=== PATIENT | female | born 2005 | race Caucasian/White ===

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

== ENCOUNTER 2023-03-06 21:23 | Outpatient (CLI) | payer BC, MEDICAID, SELFPAY ==
[2023-03-06] VITALS (13 sets, daily range): BP systolic 100–106; BP diastolic 50–59; PULSE 65–85; RESP 16; O2SAT 99–100; BMI 22.8
[2023-03-06 22:13] LABS: Bilirubin Urine Neg (Negative); Blood Urine Neg (Negative); Glucose Urine UA Norm (Normal); Ketones Urine Negative (Negative); Leukocyte Esterase Urine 1+ (Negative); Nitrate Urine Negative (Negative); Protein Urine Neg (Negative); Urine Appearance SL Hazy (CLEAR); Urine Color Yellow (Yellow); Urobilinogen Urine 1 mg/dL (Negative); pH Urine 6 (5-7)
[2023-03-06 22:14] LABS: Bacteria Urine 2+ /hpf; RBC Urine 0-4 /hpf (0-2); WBC Urine 0-4 /hpf (0-5)
[2023-03-06 22:15] LABS: Add Urine Culture? No
[2023-03-06] MEDS: terbutaline 1 mg/mL INJ 0.25 MG SUBCUT (23:17)
== END 2023-03-07 00:06 | disposition home or self-care (01) ==
LOC: OPOB 21:24 → OBGYN 21:25
PROVIDERS: PCP Family Medicine; Visit Provider Family Medicine
DX: O26.899 Other specified pregnancy related conditions, unspecified trimester (principal); Z3A.00 Weeks of gestation of pregnancy not specified; R10.9 Unspecified abdominal pain; R10.2 Pelvic and perineal pain
CPT/HCPCS: 59025; 81001; 96372; 99211; J3105

== ENCOUNTER 2023-03-09 16:19 | Outpatient (CLI) | payer BC, MEDICAID, SELFPAY ==
[2023-03-09 16:27] VITALS: TEMP 36.4
[2023-03-09 16:29] VITALS: BP 109/65; PULSE 96
[2023-03-09 16:38] VITALS: RESP 16
[2023-03-09 16:39] VITALS: BMI 22.8
[2023-03-09 16:47] VITALS: BP 109/63; PULSE 97
[2023-03-09 16:56] VITALS: BP 106/62; PULSE 97
== END 2023-03-09 16:58 | disposition home or self-care (01) ==
LOC: OPOB 16:19 → OBGYN 16:20
PROVIDERS: PCP Family Medicine; Visit Provider Family Medicine
DX: Z36.9 Encounter for antenatal screening, unspecified (principal)
CPT/HCPCS: 59025

== ENCOUNTER 2023-03-14 12:45 | Outpatient (CLI) | payer BC, MEDICAID, SELFPAY ==
[2023-03-14] VITALS (8 sets, daily range): BP systolic 110–114; BP diastolic 60–65; PULSE 87–239; RESP 16; TEMP 37.2; O2SAT 97–99; BMI 23.0
== END 2023-03-14 13:18 | disposition home or self-care (01) ==
LOC: OPOB 12:47 → OBGYN 12:50
PROVIDERS: PCP Family Medicine; Visit Provider Family Medicine
DX: Z36.9 Encounter for antenatal screening, unspecified (principal)
CPT/HCPCS: 59025

== ENCOUNTER 2023-03-18 14:57 | Outpatient (CLI) | payer BC, MEDICAID, SELFPAY ==
[2023-03-18 15:00] VITALS: BMI 23.1
[2023-03-18 15:05] VITALS: BP 113/59; PULSE 109
[2023-03-18 15:21] VITALS: BP 108/60; PULSE 96
[2023-03-18 15:28] VITALS: BP 108/60; PULSE 96; RESP 16
== END 2023-03-18 15:35 | disposition home or self-care (01) ==
LOC: OPOB 15:01 → OBGYN 15:01
PROVIDERS: PCP Family Medicine; Visit Provider Family Medicine
DX: O47.9 False labor, unspecified (principal); Z3A.00 Weeks of gestation of pregnancy not specified
CPT/HCPCS: 59025; 99211

== ENCOUNTER 2023-03-20 11:35 | Outpatient (CLI) | payer BC, MEDICAID, SELFPAY ==
[2023-03-20 11:35] VITALS: RESP 18; BMI 23.1
[2023-03-20 11:56] VITALS: BP 100/61; PULSE 96
[2023-03-20 12:17] VITALS: BP 98/63; PULSE 86
[2023-03-20 12:19] VITALS: BP 98/63; PULSE 86
== END 2023-03-20 12:19 | disposition home or self-care (01) ==
LOC: OPOB 11:38 → OBGYN 11:41
PROVIDERS: PCP Family Medicine; Visit Provider Family Medicine
DX: O47.9 False labor, unspecified (principal); Z3A.00 Weeks of gestation of pregnancy not specified
CPT/HCPCS: 59025; 99211

== ENCOUNTER 2023-04-04 23:00 | Inpatient (IN) | payer BC, MEDICAID, SELFPAY ==
[2023-04-04 23:08] VITALS: BP 108/62; PULSE 90; TEMP 36.5
[2023-04-04 23:23] VITALS: BP 102/58; PULSE 90
[2023-04-04 23:26] VITALS: BMI 23.3
[2023-04-04 23:37] VITALS: BP 102/56; PULSE 95
[2023-04-04 23:53] VITALS: BP 113/69; PULSE 93
[2023-04-05] VITALS (80 sets, daily range): BP systolic 73–124; BP diastolic 47–79; PULSE 53–101; RESP 15–16; TEMP 36–37; O2SAT 92–100
[2023-04-05 00:14] LABS: Basophils # 0.1 10^3/uL (0.0-0.1); Basophils % 0.5 %; Eosinophils # 0.1 10^3/uL (0.0-0.8); Hematocrit 29.6 % (36-47); Lymphocytes # 2.3 10^3/uL (1.5-6.5); Lymphocytes % 21.9 %; Mean Corpuscular HGB Conc 31.8 g/dL (30-55); Mean Corpuscular Hemoglobin 25.7 pg (27-33); Mean Corpuscular Volume 80.9 fl (85-98); Mean Platelet Volume 10.2 fL (7.4-10.4); Monocytes # 0.7 10^3/uL (0.2-0.9); Monocytes % 6.9 %; Neutrophils # 7.26 10^3/uL (1.8-8.0); Neutrophils % 69.2 %; Nucleated Red Blood Cells % 0 %; Platelet Count 178 10^3/cmm (157-399); Red Blood Count 3.66 10^6/uL (3.85-5.65); Red Cell Distribution Width 13.5 % (12.1-15.1); White Blood Count 10.48 10^3/uL (4.5-13.0)
[2023-04-05] MEDS: miSOPROStol 100 mcg tablet 25 MCG VAGINAL (00:32)
[2023-04-05] MEDS: acetaminophen 325 mg Tablet 650 MG PO (02:28)
[2023-04-05] MEDS: hyDROXYzine 25 mg Capsule 50 MG PO ×2 (02:28→14:44)
[2023-04-05] MEDS: dextrose 5%-lactated ringers 1,000 ML 125 ML IV ×2 (10:09→13:21)
[2023-04-05] MEDS: oxytocin 30 UNIT/500 ML BAG IV (10:15)
--- NOTE | 2023-04-05 11:29 | PM.OPHPUD ---
Labor & Delivery H&P Update Date of Procedure: April 05, 2023 Date H&P Performed: 04/04/23 Admission Diagnosis: IUP at [id number] gestation IUGR History of third trimester demise History of infant Other information: This is a 17-year-old G3, P1100 at 37 weeks 0 days gestation. This is complicated by intrauterine growth restriction diagnosed around 35 weeks gestation. The patient had poor fundal height progression and ultrasound revealed an abdominal circumference less than 2.5 percentile. I spoke with maternal- medicine in [place] who recommended twice weekly testing including a biophysical profile, umbilical artery Dopplers and NST until delivery. Her testing done once weekly in clinic was reassuring. I cannot speak for her weekly NST as she did that at an outside hospital. Her delivery was recommended to be at 37 weeks gestation by MFM. The patient has a tragic history of a prior demise around 33 weeks gestation. She also delivered a 37-week infant with multiple defects who after . Both were vaginal deliveries. Her cervix was not particularly favorable so she was started with Cytotec. We will proceed with expectant management of induction of labor and delivery.
[2023-04-05] MEDS: lactated ringers 1,000 ML 999 ML IV (12:23)
[2023-04-05] MEDS: ROPivacaine syringe 100 MG/50 ML SYRINGE 10 MG EPIDURAL ×2 (12:59→16:22)
--- NOTE | 2023-04-05 13:26 | ANES.PREANE2 ---
Pre-Anesthetic Assessment Height/Weight: Height 1.63 m Weight 61.689 kg Temp Pulse BP Pulse Ox O2 Del Method 97.7 F 60 96/55 100 Room Air 04/05/23 07:06 04/05/23 13:24 04/05/23 13:24 04/05/23 13:01 04/04/23 23:26 epidural Familial anesthetic complications: None Social No alcohol and No tobacco Exam alert, oriented x 3, clear to auscultation bilaterally and regular rate & rhythm Airway Mallampati: Class I Dentition: full Anesthetic Plan ASA status: 2 Anesthesia: Regional (specify below) Risk of > 500 ml blood loss (7ml/kg in children): Yes, adequate IV access and fluids planned Medications/Allergies Home Medications Medication Instructions Recorded Confirmed Last Taken Type vit no.95-ferrous 1 tab PO DAILY 12/19/20 03/20/23 03/20/23 08:30 History fumarate 28 mg-folic acid 800 mcg tablet ( Multivitamins) Allergies Allergy/AdvReac Type Severity Reaction Status Date / Time No Known Allergies Allergy Verified 03/14/23 13:04 Current Medications Generic Name Dose Route Start Last Admin Trade Name Freq PRN Reason Stop Dose Admin Acetaminophen 650 mg 04/05/23 00:04 04/05/23 02:28 Acetaminophen 325 Mg Tablet PO 650 mg Q6H PRN Administration Mild pain or temp > 100.4 Hydroxyzine Pamoate 50 mg 04/05/23 00:04 04/05/23 02:28 Hydroxyzine 25 Mg Capsule PO 50 mg QID PRN Administration sleep, agitation or itching Dextrose/Lactated Ringer's 1,000 mls @ 125 mls/hr 04/05/23 00:15 04/05/23 10:09 Dextrose 5%-Lactated Ringers IV 125 mls/hr .Q8H RADHA Administration Oxytocin 30 unit in 500 mls @ 1 mls/hr 04/05/23 08:00 04/05/23 11:00 Pitocin IV 7 milliunit/min .Q24H RADHA 7 mls/hr Titration Protocol 1 MILLIUNIT/MIN Lactated Ringer's 1,000 mls @ 999 mls/hr 04/05/23 11:55 04/05/23 12:23 Lactated Ringers IV 999 mls/hr .Q1H1M PRN Administration See label comments Ropivacaine 100 mg in 50 mls @ 10 mls/hr 04/05/23 12:00 04/05/23 12:59 Naropin Syringe EPIDURAL 10 mls/hr .Q5H RADHA Administration PFSH Anesthesia Medical History History of IUFD No pertinent past medical history Denies diabetes, asthma, hypertension, seizures, DVT/PE PMD: Dr. Rebolledo Surgical History Status post ORIF of fracture of ankle Right ankle in 2018 Family History Grandmother Thyroid condition maternal Hypertension maternal Mother Heart disease valve disease Denies family history of Colon cancer Ovarian cancer Diabetes Hyperlipidemia Breast cancer Uterine cancer Stroke Social History Smoking and tobacco status: current every day smoker Alcohol intake: unknown Substance/Drug Use: never Female Reproductive History : 3 Data Anesthesia 04/04/23 23:55 Short CBC 04/04/23 Range/Units 23:55 WBC 10.48 (4.5-13.0) 10^3/uL Hgb 9.40 L (12.4-14.8) g/dL Hct 29.6 L (36-47) % MCV 80.9 L (85-98) fl Plt Count 178 (157-399) 10^3/cmm Neut % (Auto) 69.2 % Neut # (Auto) 7.26 (1.8-8.0) 10^3/uL Cardiac Studies: No Data to Display
--- NOTE | 2023-04-05 13:27 | ANES.PROC ---
Anesthesia Procedures Procedure/Date: 04/05/23 Epidural: Time Out Performed: Yes Consents Signed: Procedure Consent Consent: requested by attending/covering physician, from patient, from other, risks and benefits reviewed, patient agrees to proceed and emergency procedure Lumbar Level: L3-L4 Epidural procedure: sterile prep of area, 1% lidocaine to numb the area, 18 g needle, negative for paresthesia passed, neg for paresthesia, test dose given, 1.5% xylocaine 1:200k epi (5 cc), 0.2% Ropivacaine bolus ml (5), placed PCEA, no systemic response, sterile dressing applied, L.U.D. no apparent complications and 0.2% Ropiavacaine @ mls/hr (10) Additional Comments: CONCHA at 3 cm, threaded to slightly less than 10 cm, subsequent pain free contraction following bolus
[2023-04-05] MEDS: oxytocin 30 UNIT/500 ML BAG 600 UNIT IV (20:01)
--- NOTE | 2023-04-05 21:00 | P.PCNOB_ITS ---
Delivery Note: Date of delivery: April 05, 2023 Pre-Delivery Course: The patient had routine care at [facility]. Blood type a positive, antibody negative, hepatitis B nonreactive, hepatitis C nonreactive, HIV nonreactive, rubella nonimmune, GC chlamydia negative, RPR nonreactive, UDS negative, Q milton low risk, she passed her glucose tolerance test, she was GBS negative. There were no complications of the until 35 weeks gestation when she was diagnosed with IUGR. Baby's abdominal circumference was less than 2.5 percentile. The case was discussed with KIKI. She had twice weekly testing including a biophysical profile, umbilical artery Dopplers, and NST until recommended delivery at 37 weeks. Delivery: This is a 17-year-old at 37 weeks 0 days gestation here for induction secondary to IUGR. She first received a dose of Cytotec and was then started on Pitocin. She received an epidural for pain management. She underwent artificial rupture of membranes with clear fluid. Rupture membranes was approximately 3.5 hours prior to delivery. She only had to push through 2 contractions and had a normal spontaneous vaginal delivery of a viable female weight 2660 g, 5 pounds 14 ounces, Apgars 8 and 9 over an intact perineum. The was suctioned at delivery and placed on mom's chest. The cord was clamped and cut. The placenta was delivered grossly intact and normal to inspection. There were no lacerations. Mother was doing well after delivery. The was requiring FiO2 CPAP and was transferred to the nursery in stable condition. History History History 2 Term 1 0 Miscarriages/Ectopic 0 Living Children 0 Coding Level of Care Code Acute Code for Chg Fwd Diagnoses
--- NOTE | 2023-04-05 21:05 | PC.NURSE ---
Patient assisted by Mendoza Hollingsworth RN and Portillo Cervantes RN into wheelchair and taken to the nursery.
[2023-04-05] MEDS: benzocaine-menthol 78 gm Canister 1 SPRAY TOPICAL (22:35)
[2023-04-06] VITALS (8 sets, daily range): BP systolic 94–110; BP diastolic 47–70; PULSE 50–69; RESP 16–18; TEMP 36.3–36.8; O2SAT 99–100
[2023-04-06 08:11] LABS: Hematocrit 31.2 % (36-47); Mean Corpuscular HGB Conc 32.1 g/dL (30-55); Mean Corpuscular Hemoglobin 25.8 pg (27-33); Mean Corpuscular Volume 80.6 fl (85-98); Mean Platelet Volume 10.8 fL (7.4-10.4); Platelet Count 166 10^3/cmm (157-399); Red Blood Count 3.87 10^6/uL (3.85-5.65); Red Cell Distribution Width 13.9 % (12.1-15.1); White Blood Count 11.97 10^3/uL (4.5-13.0)
[2023-04-06] MEDS: ibuprofen 800 mg tablet PO ×3 (08:29→21:27)
[2023-04-06] MEDS: docusate sodium 100 mg Capsule PO (08:29)
[2023-04-06] MEDS: prenatal vitamin Capsule 1 CAP PO (08:29)
--- NOTE | 2023-04-06 09:37 | ANE.PACU2 ---
Inpatient post-anesthesia follow up: Airway intact: Yes Vital signs: Temperature 98.1 F Pulse Rate 61 Respiratory Rate 18 Blood Pressure 110/61 Pulse Oximetry 99 Oxygen Delivery Me thod Room Air Oxygen Flow Rate Fraction of Inspir ed Oxygen Hydration adequate: Yes Nausea and vomiting: No Pain level: 1 Mental status: Baseline
--- NOTE | 2023-04-06 11:05 | PM.PN ---
Subjective Subjective: She states that her bleeding is good and she does not have any complaints. Vitals/I&O/Wt Last Vital Signs Temp 98.1 F 04/06/23 08:00 Pulse 61 04/06/23 08:00 Resp 18 04/06/23 08:00 BP 110/61 04/06/23 08:00 Pulse Ox 99 04/06/23 08:00 O2 Del Method Room Air 04/06/23 08:00 04/05/23 04/06/23 04/06/23 22:59 06:59 14:59 Intake Total 573.583 / 1500.000 Output Total 1500 / 1500 500 / 2000 Balance -926.417 / 0 -500 / -500.000 Weight last 48 hrs Weight 61.689 kg Physical Exam Narrative: Alert and oriented, sitting in bedside chair filling out paperwork, heart regular rate and rhythm, lungs clear to auscultation bilaterally, abdomen is soft and nontender, fundus is firm, extremities have no calf tenderness no edema Urinary Catheter Management: Pittman Latex: Cath Placed During This Visit: yes Reason for Continuing Indwelling Catheter: Accurate Measurement of Urinary Output in Critically Ill Patients Urinary Catheter Date of Insertion: 04/05/23 Urinary Catheter Time of Insertion: 14:23 Data 04/06/23 07:48 A&P Assessment and plan (1) Normal spontaneous vaginal delivery: Continue routine care Attestations Medical Necessity Statement*: Routine care Coding Level of Care Code Acute Code for Chg Fwd Diagnoses Normal spontaneous vaginal delivery O80
--- NOTE | 2023-04-07 04:34 | P.DS_ITS ---
Discharge Providers Date of Admission: 04/04/23 23:00 Date of Discharge: April 07, 2023 Attending Provider at Admission: Sandie Santos MD Attending Provider at Discharge: Sandie Santos MD Primary Care Provider: Hilda Rebolledo DO Diagnoses at Discharge Discharge Diagnosis (1) Normal spontaneous vaginal delivery: Status: Acute Reason for Visit Reason for Visit: Induction of labor, IUGR Hospital Course Hospital Course This is a 17-year-old who was admitted for induction at 37 weeks gestation secondary to IUGR. She had a normal spontaneous vaginal delivery of a viable female weight 2.66 kg, Apgars 8 and 9. The infant originally had some transient tachypnea that resolved by 10 hours of life and then had some hypoxemia at 30 hours of life so she was eventually shipped to [facility]. Mother did well after delivery, she was ambulating, tolerating a regular diet, had decreased vaginal bleeding and was comfortable with discharge home. Physical Exam 2 Narrative: Sleeping in bed, easily arousable, heart regular rate and rhythm, lungs clear to auscultation bilaterally, abdomen soft and nontender, fundus is firm and U -2, extremities have no calf tenderness and no edema. Urinary Catheter Management: Pittman Latex: Cath Placed During This Visit: yes Reason for Continuing Indwelling Catheter: Accurate Measurement of Urinary Output in Critically Ill Patients Urinary Catheter Date of Insertion: 04/05/23 Urinary Catheter Time of Insertion: 14:23 Discharge Data Studies Completed and Pending Laboratory Results WBC 11.97 10^3/uL (4.5-13.0) 04/06/23 07:48 RBC 3.87 10^6/uL (3.85-5.65) 04/06/23 07:48 Hgb 10.00 g/dL (12.4-14.8) L 04/06/23 07:48 Hct 31.2 % (36-47) L 04/06/23 07:48 MCV 80.6 fl (85-98) L 04/06/23 07:48 MCH 25.8 pg (27-33) L 04/06/23 07:48 MCHC 32.1 g/dL (30-55) 04/06/23 07:48 RDW 13.9 % (12.1-15.1) 04/06/23 07:48 Plt Count 166 10^3/cmm (157-399) 04/06/23 07:48 MPV 10.8 fL (7.4-10.4) H 04/06/23 07:48 Neut % (Auto) 69.2 % 04/04/23 23:55 Lymph % (Auto) 21.9 % 04/04/23 23:55 [place] % (Auto) 6.9 % 04/04/23 23:55 Eos % (Auto) 1.0 % 04/04/23 23:55 Baso % (Auto) 0.5 % 04/04/23 23:55 Neut # (Auto) 7.26 10^3/uL (1.8-8.0) 04/04/23 23:55 Lymph # (Auto) 2.3 10^3/uL (1.5-6.5) 04/04/23 23:55 [place] # (Auto) 0.7 10^3/uL (0.2-0.9) 04/04/23 23:55 Eos # (Auto) 0.1 10^3/uL (0.0-0.8) 04/04/23 23:55 Baso # (Auto) 0.1 10^3/uL (0.0-0.1) 04/04/23 23:55 Nucleated RBC % (auto) 0 % 04/04/23 23:55 Nucleated RBCs # 0.0 /100WBC 04/04/23 23:55 Vitals Last Vital Signs Temp 97.5 F L 04/06/23 21:00 Pulse 56 L 04/06/23 21:00 Resp 18 04/06/23 21:00 BP 107/70 04/06/23 21:00 Pulse Ox 99 04/06/23 08:00 O2 Del Method Room Air 04/06/23 08:00 Discharge Plan Discharge Patient Disposition: Home Condition: Stable Prescriptions: Continued PNV cmb#95-ferrous fumarate-FA [ Multivitamins] 28 mg iron- 800 mcg Tablet 1 tab PO DAILY Discharge Orders: Discharge Order (Routine); Ordered 04/07/23 Ordered By: Sandie Santos Referrals: Sandie Santos MD [Physician] - 2 weeks Discharge Diet: Usual diet Discharge Activity: Limit activity as instructed Patient Instructions: Opioid Safety Activity Restrictions/Additional Instructions: Nothing per vagina for 6 weeks. Discharge Attestations Time Spent in Discharge Care*: less than 30 min Quality Metrics Clinical Quality Measures [ No reported AMI, CVA or VTE this stay] Coding Level of Care Code Acute Code for Chg Fwd Diagnoses Normal spontaneous vaginal delivery O80
[2023-04-07 05:00] VITALS: BP 102/69; PULSE 70; RESP 18; TEMP 36.6
[2023-04-07 07:00] VITALS: BP 108/70; PULSE 70; RESP 18; TEMP 36.7
== END 2023-04-07 07:30 | disposition home or self-care (01) | DRG 807 ==
LOC: OPOB 23:01 → OBGYN 23:01
PROVIDERS: Absent Provider Family Medicine; Admitting Provider Family Medicine; PCP Family Medicine; Visit Provider Family Medicine
DX: O36.5930 Maternal care for other known or suspected poor fetal growth, third trimester, not applicable or unspecified (principal); Z37.0 Single live birth; Z3A.37 37 weeks gestation of pregnancy
CPT/HCPCS: 36415; 51702; 59025; 59409; 85025; 85027; J2590; J2795; J7120; J7121

== ENCOUNTER 2025-04-06 15:20 | Outpatient (CLI) | payer MEDICAID, SELFPAY ==
[2025-04-06 15:18] VITALS: BMI 26.2
[2025-04-06 15:29] VITALS: BP 108/66; PULSE 95
[2025-04-06 15:49] VITALS: BP 106/68; PULSE 80
[2025-04-06 16:09] VITALS: BP 111/60; PULSE 83
[2025-04-06 16:30] VITALS: BP 106/64; PULSE 67
== END 2025-04-06 16:36 | disposition home or self-care (01) ==
LOC: OPOB 15:21 → OBGYN 15:22
PROVIDERS: Visit Provider Family Medicine
DX: O26.899 Other specified pregnancy related conditions, unspecified trimester (principal); Z3A.00 Weeks of gestation of pregnancy not specified
CPT/HCPCS: 59025

== ENCOUNTER 2025-04-06 16:57 | Outpatient (CLI) | payer MEDICAID, SELFPAY ==
--- NOTE | 2025-04-06 17:01 | USR_ITS ---
PROCEDURE INFORMATION: Exam: US Biophysical Profile Without Non-Stress Test Exam date and time: 04/06/2025 5:08 PM Age: 19 years old Clinical indication: Screening exam; Routine US screening of fetus; Third trimester (>=28 weeks 0 days); ; Additional info: Bpp every Saturday until delivery TECHNIQUE: Imaging protocol: US biophysical profile without non-stress testing. Total images: 362 COMPARISON: US OB >= 14 weeks fetus [id number] 12/22/2024 1:19 PM FINDINGS: Gestation: Single live intrauterine gestation. heart rate: 139 bpm. Regular cardiac rhythm with rate 142 bpm. presentation and position: Cephalic presentation. Placenta: Anterior placenta. Amniotic fluid index: CARRIE is 14.34 cm. CARRIE 14.3 cm. BIOPHYSICAL PROFILE: breathing (BPP): 2 /2 gross body movement (BPP): 2 /2 tone (BPP): 2 /2 Amniotic fluid (BPP): 2 /2 Biophysical profile score (BPP): 8 /8 MATERNAL ANATOMY: Cervix: Cervical length measures 0 cm. Cervix closed, 3.8 cm long. US/US OB BPP wo NST [id number] IMPRESSION: Biophysical profile score is 8 out of 8.
== END 2025-04-06 16:58 | disposition home or self-care (01) ==
LOC: RAD 16:57
PROVIDERS: Visit Provider Family Medicine
DX: Z87.59 Personal history of other complications of pregnancy, childbirth and the puerperium (principal)
CPT/HCPCS: 76819

== ENCOUNTER 2025-04-13 15:07 | Outpatient (CLI) | payer MEDICAID, SELFPAY ==
[2025-04-13 15:14] VITALS: BP 103/64; PULSE 88
[2025-04-13 15:17] VITALS: RESP 16; BMI 26.4
[2025-04-13 15:36] VITALS: BP 106/68; PULSE 83
== END 2025-04-13 15:44 | disposition home or self-care (01) ==
LOC: OPOB 15:07 → OBGYN 15:08
PROVIDERS: Visit Provider Family Medicine
DX: O26.899 Other specified pregnancy related conditions, unspecified trimester (principal); Z3A.00 Weeks of gestation of pregnancy not specified
CPT/HCPCS: 59025

== ENCOUNTER 2025-04-20 13:50 | Outpatient (CLI) | payer MEDICAID, SELFPAY ==
[2025-04-20 13:50] VITALS: BMI 27.4
[2025-04-20 13:56] VITALS: BP 114/63; PULSE 80
[2025-04-20 14:11] VITALS: BP 109/62; PULSE 93
[2025-04-20 14:26] VITALS: BP 110/66; PULSE 99
[2025-04-20 14:37] VITALS: BP 110/66; PULSE 99; RESP 16; O2SAT 98
== END 2025-04-20 14:37 | disposition home or self-care (01) ==
LOC: OPOB 13:50 → OBGYN 13:51
PROVIDERS: Visit Provider Family Medicine
DX: O36.5990 Maternal care for other known or suspected poor fetal growth, unspecified trimester, not applicable or unspecified (principal); Z3A.00 Weeks of gestation of pregnancy not specified
CPT/HCPCS: 59025; 99211

== ENCOUNTER 2025-04-20 14:58 | Outpatient (CLI) | payer MEDICAID, SELFPAY ==
--- NOTE | 2025-04-20 15:04 | USR_ITS ---
PROCEDURE INFORMATION: Exam: US Biophysical Profile Without Non-Stress Test Exam date and time: 04/20/2025 3:10 PM Age: 19 years old Clinical indication: Screening exam; Encounter for screening of mother; Third trimester (>=28 weeks 0 days); ; Additional info: Past HX of intrauterine TECHNIQUE: Imaging protocol: US biophysical profile without non-stress testing. COMPARISON: US OB BPP wo NST [id number] 04/06/2025 5:08 PM FINDINGS: heart rate: 139 bpm Amniotic fluid index: CARRIE is 19.13 cm. BIOPHYSICAL PROFILE: breathing (BPP): 2 out of 2. gross body movement (BPP): 2 out of 2. tone (BPP): 2 out of 2. Amniotic fluid (BPP): 2 out of 2. MATERNAL ANATOMY: Cervix: Cervical length measures 4.2 cm. US/US OB BPP wo NST [id number] IMPRESSION: Biophysical profile 03/05.
== END 2025-04-20 14:59 | disposition home or self-care (01) ==
LOC: RAD 14:59
PROVIDERS: Visit Provider Family Medicine
DX: O09.293 Supervision of pregnancy with other poor reproductive or obstetric history, third trimester (principal); Z3A.37 37 weeks gestation of pregnancy
CPT/HCPCS: 76819

== ENCOUNTER 2025-04-27 14:36 | Outpatient (CLI) | payer MEDICAID, SELFPAY ==
[2025-04-27 14:46] VITALS: BP 107/70; PULSE 89
[2025-04-27 14:53] VITALS: RESP 18; BMI 26.9
[2025-04-27 15:06] VITALS: BP 109/66; PULSE 83
[2025-04-27 15:08] VITALS: RESP 18
== END 2025-04-27 15:10 | disposition home or self-care (01) ==
LOC: OPOB 14:38 → OBGYN 14:39
PROVIDERS: Visit Provider Family Medicine
DX: O36.5990 Maternal care for other known or suspected poor fetal growth, unspecified trimester, not applicable or unspecified (principal); O09.299 Supervision of pregnancy with other poor reproductive or obstetric history, unspecified trimester; Z3A.00 Weeks of gestation of pregnancy not specified
CPT/HCPCS: 59025

== ENCOUNTER 2025-04-27 15:26 | Outpatient (CLI) | payer MEDICAID, SELFPAY ==
--- NOTE | 2025-04-27 15:29 | USR_ITS ---
PROCEDURE INFORMATION: Exam: US , Follow up Exam date and time: 04/27/2025 3:43 PM Age: 19 years old Clinical indication: Screening exam; Routine US, uterus; Additional info: Personal HX of intrauterine LABS AND CLINICAL REPORTS: Gestational age (Established): 38 w 3 d Estimated due date (Established): 05/08/2025 TECHNIQUE: Imaging protocol: Transabdominal ultrasound of the uterus, real time with image documentation. Follow-up (eg, re-evaluation of size by measuring standard growth parameters and amniotic fluid volume, re-evaluation of organ system(s) suspected or confirmed to be abnormal on a previous scan). COMPARISON: US OB BPP wo NST [id number] 04/20/2025 3:10 PM FINDINGS: Gestation: Intrauterine gestation. heart rate: 126 bpm presentation and position: Cephalic position. Placenta: The placenta is anterior, no previa. Amniotic fluid index: CARRIE is 11.67 cm. 12 cm CARRIE. MATERNAL: Cervix: Cervical length measures 3.3 cm. The cervix is closed. PROCEDURE INFORMATION: Exam: US Biophysical Profile Without Non-Stress Test Exam date and time: 04/27/2025 3:43 PM Clinical indication: Screening exam; Routine US, uterus; Additional info: Personal HX of intrauterine TECHNIQUE: Imaging protocol: US biophysical profile without non-stress testing. COMPARISON: No relevant prior studies available. FINDINGS: BIOPHYSICAL PROFILE: breathing (BPP): 2 out of 2. gross body movement (BPP): 2 out of 2. tone (BPP): 2 out of 2. Amniotic fluid (BPP): 2 out of 2. US/US OB F/U w BPP wo NST IMPRESSION: 1. Unremarkable limited exam. 2. Closed cervix. IMPRESSION: Biophysical profile score is 8 out of 8.
== END 2025-04-27 15:27 | disposition home or self-care (01) ==
LOC: RAD 15:27
PROVIDERS: PCP Family Medicine; Visit Provider Family Medicine
DX: Z87.59 Personal history of other complications of pregnancy, childbirth and the puerperium (principal); O09.293 Supervision of pregnancy with other poor reproductive or obstetric history, third trimester; Z3A.39 39 weeks gestation of pregnancy
CPT/HCPCS: 76816; 76819

== ENCOUNTER 2025-05-02 20:14 | Inpatient (IN) | payer MEDICAID, SELFPAY ==
[2025-05-02] VITALS (12 sets, daily range): BP systolic 115–130; BP diastolic 64–79; PULSE 75–92; TEMP 36.6–36.7; BMI 26.9
[2025-05-02 21:11] LABS: Hematocrit 31.9 % (36-47); Hemoglobin 10.10 g/dL (11.27-16.99); Mean Corpuscular HGB Conc 31.7 g/dL (30-55); Mean Corpuscular Hemoglobin 26.0 pg (27-33); Mean Corpuscular Volume 82.0 fl (85-98); Nucleated Red Blood Cells % 0 %; Platelet Count 182 10^3/cmm (157-399); Red Blood Count 3.89 10^6/uL (3.85-5.65); White Blood Count 11.91 10^3/uL (3.29-11.43)
[2025-05-03] VITALS (49 sets, daily range): BP systolic 89–123; BP diastolic 50–83; PULSE 58–95; RESP 16; TEMP 36.6–36.9; O2SAT 94–98
--- NOTE | 2025-05-03 12:04 | PM.OPHPUD ---
Labor & Delivery H&P Update Date of Procedure: May 03, 2025 Date H&P Performed: 04/29/25 Admission Diagnosis: IUP at 39 weeks 2 days gestation Induction secondary to history of stillborn Planned procedure: Induction of labor and delivery
[2025-05-03] MEDS: ROPivacaine premix 200 MG/100 ML PREMIX 13 MG EPIDURAL (13:00)
--- NOTE | 2025-05-03 14:27 | ANES.PREANE2 ---
Pre-Anesthetic Assessment Height/Weight: Height 5 ft 4 in Weight 157 lb Temp Pulse BP Pulse Ox O2 Del Method 97.9 F 58 L 107/64 94 Room Air 05/03/25 08:15 05/03/25 14:21 05/03/25 14:21 05/03/25 12:56 05/02/25 20:30 Preop Diagnosis: IUP Was Beta Lorri taken within 24 hours: N/A Was Clonidine taken within 24 hours: N/A Social No alcohol and No tobacco Exam alert, oriented x 3, clear to auscultation bilaterally and regular rate & rhythm Airway Submandibular: within normal limits Cervical ROM: within normal limits Mallampati: Class II Dentition: full Comments: Comments: nose ring Anesthetic Plan ASA status: 2 Anesthesia: Regional (specify below) Other: Patient comes in active labor Denies any issues during Denies any cardiac or pulmonary issues Labs reviewed from today and acceptable for procedure Plan for routine epidural placement Medications/Allergies Home Medications ?Medication ?Instructions ?Recorded ?Confirmed ?Last Taken ?Type vit no.95-ferrous 1 tab PO DAILY 12/19/20 04/13/25 04/12/25 History fumarate 28 mg-folic acid 800 mcg tablet ( Multivitamins) Allergies Allergy/AdvReac Type Severity Reaction Status Date / Time No Known Allergies Allergy Verified 03/14/23 13:04 Current Medications Generic Name Dose Route Start Last Admin Trade Name Freq PRN Reason Stop Dose Admin Dextrose/Lactated Ringer's 1,000 mls @ 125 mls/hr 05/02/25 21:15 05/03/25 08:26 Dextrose 5%-Lactated Ringers IV 0 mls/hr .Q8H RADHA Infusion Lactated Ringer's 1,000 mls @ 999 mls/hr 05/03/25 11:19 05/03/25 12:50 Lactated Ringers IV 125 mls/hr .Q1H1M PRN Administration See label comments Ropivacaine 200 mg in 100 mls @ 10 mls/hr 05/03/25 11:30 05/03/25 13:00 Naropin Premix EPIDURAL 13 mls/hr .Q10H RADHA Administration PFSH Anesthesia Medical History (Updated 04/06/23 @ 11:07 by Sandie Santos MD) History of IUFD No pertinent past medical history Denies diabetes, asthma, hypertension, seizures, DVT/PE PMD: Dr. Rebolledo Surgical History Status post ORIF of fracture of ankle Right ankle in 2018 Family History Grandmother Thyroid disease maternal Hypertension maternal Mother Heart disease valve disease Denies family history of Colon cancer Ovarian cancer Diabetes Hyperlipidemia Breast cancer Uterine cancer Stroke Social History Smoking and tobacco/nicotine status: current every day tobacco/nicotine user Alcohol intake: unknown Substance/Drug Use: never Female Reproductive History : 4 Data Anesthesia 05/02/25 20:20 Short CBC 05/02/25 Range/Units 20:20 WBC 11.91 H (3.29-11.43) 10^3/uL Hgb 10.10 L (11.27-16.99) g/dL Hct 31.9 L (36-47) % MCV 82.0 L (85-98) fl Plt Count 182 (157-399) 10^3/cmm Neut % (Auto) 68.9 % Neut # (Auto) 8.20 H (1.8-7.7) 10^3/uL Blood Bank 05/02/25 05/02/25 20:20 21:35 Blood Type Cancelled A Positive Rho(D) Type Cancelled Rh positive Antibody Screen Cancelled Negative
--- NOTE | 2025-05-03 14:28 | ANES.PROC ---
Anesthesia Procedures Procedure/Date: 05/03/25 Epidural: Time Out Performed: Yes Consents Signed: Procedure Consent Consent: requested by attending/covering physician and from patient Lumbar Level: L3-L4 Epidural position: sitting Additional Comments: CSE performed. ChloraPrep was used to prep the skin. 1% lidocaine was then used to numb the area. An 18-gauge epidural needle was then introduced until [id number] was achieved around 6 cm. A 27-gauge spinal needle was then introduced into the intrathecal space. 1 cc of 0.25% bupivacaine was then injected into the spinal canal. Spinal needle was removed and epidural catheter was threaded. Upon initial aspiration of catheter there was blood drawn. Flush catheter and still had blood coming back. Had a discussion with patient that epidural catheter would need to be replaced. Procedure was repeated and patient did well. Epidural catheter was left at 15 cm to skin. Ropivacaine 0.2% was set at 13 mL/h
[2025-05-03] MEDS: oxytocin 30 UNIT/500 ML BAG 600 UNIT IV (15:53)
--- NOTE | 2025-05-03 16:01 | PM.DELIVERY ---
Delivery Note: Date of delivery: May 03, 2025 Pre-Delivery Course: The patient had routine though somewhat late care at [facility]. There were no complications during this ! 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 labs: A+ antibody negative, hepatitis B nonreactive, hepatitis C nonreactive, HIV nonreactive, rubella immune, GC chlamydia negative, RPR nonreactive, UDS negative, Q milton low risk, she passed her glucose tolerance test, she was GBS negative. Delivery: This is a 19-year-old at 39 weeks 2 days gestation who is here for induction secondary to history of stillbirth. The patient's cervix was not favorable so she received 2 doses of Cytotec and then underwent artificial rupture of membranes with clear fluid. She received an epidural for pain management. Rupture of membranes was approximately 4 hours prior to delivery. The patient only had to push through 2 contractions to have a normal spontaneous vaginal delivery of a viable male weight 3220 g, 7 pounds 2 ounces, Apgars 10 and 10 over an intact perineum. The infant was suctioned at delivery and placed on the mother's chest. The cord was clamped and cut. The placenta was delivered grossly intact and normal to inspection. There were no lacerations. Mother and infant were doing well after delivery. History History History 4 Term 2 1 Miscarriages/Ectopic 0 Living Children 1 A&P Assessment and plan 1. Normal spontaneous vaginal delivery: PDMP PDMP Reviewed: Not Reviewed Coding Level of Care Code Acute Code for Chg Fwd Diagnoses Normal spontaneous vaginal delivery O80
[2025-05-03] MEDS: benzocaine-menthol 78 gm Canister 1 SPRAY TOPICAL (17:43)
[2025-05-04 01:45] VITALS: BP 100/61; PULSE 70; RESP 16; O2SAT 97
[2025-05-04 04:13] LABS: Hematocrit 30.2 % (36-47); Hemoglobin 9.80 g/dL (11.27-16.99); Mean Corpuscular HGB Conc 32.5 g/dL (30-55); Mean Corpuscular Hemoglobin 26.6 pg (27-33); Mean Corpuscular Volume 81.8 fl (85-98); Platelet Count 172 10^3/cmm (157-399); Red Blood Count 3.69 10^6/uL (3.85-5.65); White Blood Count 12.23 10^3/uL (3.29-11.43)
[2025-05-04 05:45] VITALS: BP 97/57; PULSE 68; RESP 16; TEMP 36.6; O2SAT 97
[2025-05-04] MEDS: PRENATAL VIT NO.130/IRON/FOLIC 1 EACH TABLET PO (05:45)
[2025-05-04 09:23] VITALS: BP 112/72; PULSE 78; RESP 15
--- NOTE | 2025-05-04 12:44 | P.DS_ITS ---
Discharge Providers Date of Admission: 05/02/25 20:14 Date of Discharge: May 04, 2025 Attending Provider at Admission: Sandie Santos MD Attending Provider at Discharge: Sandie Santos MD Primary Care Provider: Sandie Santos MD Diagnoses at Discharge Discharge Diagnosis 1. Normal spontaneous vaginal delivery: Reason for Visit Reason for Visit: induction of labor Hospital Course Hospital Course This is a 19-year-old G4 now P2 who had a normal spontaneous vaginal delivery of a viable male . She has done well . She is ambulating, tolerating a regular diet, has decreased vaginal bleeding and is comfortable with discharge home. Physical Exam Narrative: Alert and oriented, sitting up in bed, heart regular rate and rhythm, lungs clear to auscultation bilaterally, abdomen is soft and nontender, fundus is firm and U- 3, extremities have trace edema no calf tenderness Urinary Catheter Management: Pittman Latex Free: Cath Placed During This Visit: yes, but has since been removed by the nurse Reason for Continuing Indwelling Catheter: Decision to DC Catheter Urinary Catheter Date of Insertion: 05/03/25 Urinary Catheter Time of Insertion: 13:25 Date Urinary Catheter Removed: 05/03/25 Time Urinary Catheter Discontinued: 15:40 Discharge Data Studies Completed and Pending Laboratory Results WBC 12.23 10^3/uL (3.29-11.43) H 05/04/25 04:05 RBC 3.69 10^6/uL (3.85-5.65) L 05/04/25 04:05 Hgb 9.80 g/dL (11.27-16.99) L 05/04/25 04:05 Hct 30.2 % (36-47) L 05/04/25 04:05 MCV 81.8 fl (85-98) L 05/04/25 04:05 MCH 26.6 pg (27-33) L 05/04/25 04:05 MCHC 32.5 g/dL (30-55) 05/04/25 04:05 RDW 14.3 % (12.1-15.1) 05/04/25 04:05 Plt Count 172 10^3/cmm (157-399) 05/04/25 04:05 MPV 10.7 fL (7.4-10.4) H 05/04/25 04:05 Neut % (Auto) 68.9 % 05/02/25 20:20 Lymph % (Auto) 21.3 % 05/02/25 20:20 [place] % (Auto) 7.9 % 05/02/25 20:20 Eos % (Auto) 0.8 % 05/02/25 20:20 Baso % (Auto) 0.4 % 05/02/25 20:20 Neut # (Auto) 8.20 10^3/uL (1.8-7.7) H 05/02/25 20:20 Lymph # (Auto) 2.5 10^3/uL (0.8-4.8) 05/02/25 20:20 [place] # (Auto) 0.9 10^3/uL (0.2-0.9) 05/02/25 20:20 Eos # (Auto) 0.1 10^3/uL (0.0-0.8) 05/02/25 20:20 Baso # (Auto) 0.1 10^3/uL (0.0-0.1) 05/02/25 20:20 Nucleated RBC % (auto) 0 % 05/02/25 20:20 Nucleated RBCs # 0.0 /100WBC 05/02/25 20:20 Blood Type A Positive 05/02/25 21:35 Rho(D) Type Rh positive 05/02/25 21:35 Antibody Screen Negative 05/02/25 21:35 Vitals Last Vital Signs Temp 97.8 F 05/04/25 05:45 Pulse 78 05/04/25 09:23 Resp 15 05/04/25 09:23 BP 112/72 05/04/25 09:23 Pulse Ox 97 05/04/25 05:45 O2 Del Method Room Air 05/04/25 05:45 Discharge Plan Discharge Patient Disposition: Home Condition: Stable Prescriptions: Continued PNV no.95-ferrous fumarate-FA [ Multivitamins] 28 mg iron- 800 mcg Tablet 1 tab PO DAILY Discharge Order = DC NOW: Discharge Order (Routine); Ordered 05/04/25 Ordered By: Sandie Santos Referrals: Sandie Santos MD [Primary Care Provider, [facility]] - 1 month Discharge Diet: Usual diet Discharge Activity: Limit activity as instructed Patient Instructions: Depression (DC), Opioid Safety (DC), Preeclampsia and Eclampsia After Delivery (GEN), Hemorrhage (DC), OB Discharge Report, OB Food/Drug Interaction Guide, OB Care at Home, Opioid Safety, OB Vaginal Deliveries, Patient Portal & Selin Instructions, Abnormal Bleeding Activity Restrictions/Additional Instructions: Nothing per vagina for 6 weeks. Follow-up with Dr. Santos in 4 weeks Discharge Attestations Time Spent in Discharge Care*: less than 30 min Quality Metrics Clinical Quality Measures [ No reported AMI, CVA or VTE this stay] Coding Level of Care Code Acute Code for Chg Fwd Diagnoses Normal spontaneous vaginal delivery O80
--- NOTE | 2025-05-04 13:34 | ANE.PACU2 ---
Inpatient post-anesthesia follow up: Airway intact: Yes Vital signs: Temperature 98 F Pulse Rate 68 Respiratory Rate 16 Blood Pressure 111/74 Pulse Oximetry 99 Oxygen Delivery Me thod Room Air Oxygen Flow Rate Fraction of Inspir ed Oxygen Hydration adequate: Yes Nausea and vomiting: No Pain level: 1 Mental status: Baseline Epidural Start/End: Epidural Start Date: 05/03/25 Epidural Start Time: 12:45 Epidural End Date: 05/03/25 Epidural End Time: 18:49
[2025-05-04 17:30] VITALS: BP 111/74; PULSE 68; RESP 16; TEMP 36.6; O2SAT 99
== END 2025-05-04 17:40 | disposition home or self-care (01) | DRG 807 ==
LOC: OPOB 20:15 → OBGYN 20:15
PROVIDERS: Admitting Provider Family Medicine; PCP Family Medicine; Visit Provider Family Medicine
DX: O75.89 Other specified complications of labor and delivery (principal); Z37.0 Single live birth; O99.334 Smoking (tobacco) complicating childbirth; F17.210 Nicotine dependence, cigarettes, uncomplicated; Z3A.39 39 weeks gestation of pregnancy; Z87.59 Personal history of other complications of pregnancy, childbirth and the puerperium
CPT/HCPCS: 36415; 51702; 59025; 59409; 85025; 85027; 86850; 86900; J2590; J2795; J3490; J7120; J7121; J9999